=== PATIENT | female | born 1955 | race Caucasian/White ===

== ENCOUNTER 2020-01-20 10:43 | Outpatient (CLI) | payer OTHER, SELFPAY ==
--- NOTE | 2020-01-20 11:00 | NEURO_ITS ---
Patient Number: [id number] Impression: # Complains of left hand numbness # Mild left Carpal Tunnel Syndrome. # No ulnar neuropathy. # Normal needle/EMG exam. Nerve Conduction Studies Anti Sensory Summary Table Stim Site NR Peak (ms) P-T Amp (?V) Site1 Site2 Delta-P (ms) Dist (cm) Elías (m/s) Left Median Anti Sensory (2-3nd Digit) Wrist 2.7 61.9 Wrist 2-3nd Digit 2.7 14.0 52 Wrist 2.7 52.5 Wrist 2-3nd Digit 2.7 14.0 52 Right Median Anti Sensory (2-3nd Digit) Wrist 2.6 17.5 Wrist 2-3nd Digit 2.6 14.0 54 Wrist 2.8 13.8 Wrist 2-3nd Digit 2.6 14.0 54 Left Radial Anti Sensory (Base 1st Digit) Wrist 2.0 22.8 Wrist Base 1st Digit 2.0 0.0 Right Radial Anti Sensory (Base 1st Digit) Wrist 2.1 13.3 Wrist Base 1st Digit 2.1 0.0 Left Ulnar Anti Sensory (5th Digit) Wrist 2.4 41.0 Wrist 5th Digit 2.4 14.0 58 Right Ulnar Anti Sensory (5th Digit) Wrist 2.5 34.0 Wrist 5th Digit 2.5 14.0 56 Motor Summary Table Stim Site NR Onset (ms) O-P Amp (mV) Site1 Site2 Delta-0 (ms) Dist (cm) Elías (m/s) Left Median Motor (Abd Poll Brev) Wrist 3.5 2.9 Elbow Wrist 4.2 25.0 60 Elbow 7.7 2.5 Right Median Motor (Abd Poll Brev) Wrist 2.8 3.7 Elbow Wrist 5.1 28.0 55 Elbow 7.9 1.7 Left Ulnar Motor (Abd Dig Minimi) Wrist 2.3 6.0 A Elbow Wrist 4.5 26.0 58 A Elbow 6.8 4.7 Right Ulnar Motor (Abd Dig Minimi) Wrist 2.7 5.0 A Elbow Wrist 5.0 29.0 58 A Elbow 7.7 3.2 F Wave Studies NR F-Lat (ms) L-R F-Lat (ms) Left Median (Mrkrs) (Abd Poll Brev) 25.42 0.16 Right Median (Mrkrs) (Abd Poll Brev) 25.59 0.16 Left Ulnar (Mrkrs) (Abd Dig Min) 26.17 0.33 Right Ulnar (Mrkrs) (Abd Dig Min) 25.85 0.33 EMG Side Muscle Nerve Root Ins Act Fibs Amp Dur Recrt Comment Right 1stDorInt Ulnar C8-T1 Nml Nml Nml Nml Nml Right Ext Indicis Radial (Post Int) C7-8 Nml Nml Nml Nml Nml Right Ext Digitorum Radial (Post Int) C7-8 Nml Nml Nml Nml Nml Right BrachioRad Radial C5-6 Nml Nml Nml Nml Nml Right PronatorTeres Median C6-7 Nml Nml Nml Nml Nml Right Abd Poll Brev Median C8-T1 Nml Nml Nml Nml Nml Left 1stDorInt Ulnar C8-T1 Nml Nml Nml Nml Nml Left Ext Indicis Radial (Post Int) C7-8 Nml Nml Nml Nml Nml Left Ext Digitorum Radial (Post Int) C7-8 Nml Nml Nml Nml Nml Left BrachioRad Radial C5-6 Nml Nml Nml Nml Nml Left PronatorTeres Median C6-7 Nml Nml Nml Nml Nml Left Abd Poll Brev Median C8-T1 Nml Nml Nml Nml Nml MTDD
== END 2020-01-20 10:44 | disposition home or self-care (01) ==
PROVIDERS: PCP Family Medicine; Visit Provider Family Medicine
DX: R20.0 Anesthesia of skin (principal); G56.02 Carpal tunnel syndrome, left upper limb
CPT/HCPCS: 95886; 95911

== ENCOUNTER 2020-05-05 13:00 | Outpatient (RCR) | payer OTHER, SELFPAY ==
[2020-03-08 10:53] VITALS: BMI 30.9
== END 2020-06-06 23:59 | disposition home or self-care (01) ==
LOC: ANHDMC 13:00
PROVIDERS: PCP Family Medicine; Visit Provider Family Medicine
DX: E11.9 Type 2 diabetes mellitus without complications (principal); Z71.3 Dietary counseling and surveillance; Z71.89 Other specified counseling
CPT/HCPCS: 97802; G0108

== ENCOUNTER → 2020-06-03 09:51 | Outpatient (CLI) | payer OTHER, SELFPAY ==
--- NOTE | ~2020-06-03 | DEXA_ITS ---
Bone Density Report Name: Rosalinda Oviedo Age: 64 Sex: Female Ethnicity: White Date of : 1955 Indication: postmenopausal; screening for osteoporosis; Referring Provider: ANGEL, [place] Study: Bone densitometry was performed. Exam Date: June 03, 2020 Accession number: [id number] Bone Density: Region BMD T-score Z-score Classification AP Spine (L1-L4) 0.929 -1.1 0.6 Osteopenia Femoral Neck (Left) 0.722 -1.1 0.3 Osteopenia Total Hip (Left) 0.849 -0.8 0.4 Normal Femoral Neck (Right) 0.646 -1.8 -0.4 Osteopenia Total Hip (Right) 0.798 -1.2 0.0 Osteopenia Total Hip Mean 0.824 -1.0 0.2 Normal World Health Organization criteria for BMD impression classify patients as: Normal (T-score at or above -1.0), Osteopenia (T-score between -1.0 and -2.5), or Osteoporosis (T-score at or below -2.5). 10-year Fracture Risk(1): Major Osteoporotic Fracture 9.4% Hip Fracture 1.1% Reported Risk Factors: [place] (), Neck BMD=0.646, BMI=30.9 (1) FRAX(R) Version 3.08. Fracture probability calculated for an untreated patient. Fracture probability may be lower if the patient has received treatment. Previous Exams: Region Exam Age BMD T-score BMD Change BMD Change Date g/cm2 vs Baseline vs Previous AP Spine(L1-L4) 06/03/2020 64 0.929 -1.1 -0.036* -0.037* 04/15/2017 61 0.966 -0.7 0.001 -0.032* 04/09/2015 59 0.998 -0.4 0.033* -0.084* 03/08/2012 56 1.083 0.3 0.118* 0.073* 01/30/2008 52 1.010 -0.3 0.044* 0.044* 11/26/2005 50 0.965 -0.7 Total Hip(Left) 06/03/2020 64 0.849 -0.8 -0.049* -0.029* 04/15/2017 61 0.878 -0.5 -0.020 0.004 04/09/2015 59 0.874 -0.6 -0.024 -0.015 03/08/2012 56 0.889 -0.4 -0.009 -0.018 01/30/2008 52 0.907 -0.3 0.009 0.009 11/26/2005 50 0.898 -0.4 Total Hip(Right) 06/03/2020 64 0.798 -1.2 -0.109* -0.091* 04/15/2017 61 0.889 -0.4 -0.018 -0.063* 04/09/2015 59 0.952 0.1 0.045* 0.016 03/08/2012 56 0.936 -0.1 0.029* 0.035* 01/30/2008 52 0.901 -0.3 -0.006 -0.006 11/26/2005 50 0.907 -0.3 *Denotes significance at 95% confidence level, LSC for AP Spine = 0.022 g/cm2, LSC for Total Hip = 0.027 g/cm2 Clinical Information Provided by Patient:
--- NOTE | ~2020-06-03 | MM_ITS ---
EXAMINATION: MM screening dimitry BI w braeden HISTORY: Screening TECHNIQUE: Craniocaudal and mediolateral oblique 3-D tomosynthesis images were obtained and synthetic 2-D images were generated. CAD analysis was submitted and interpreted. COMPARISON: Comparison to multiple prior studies sequentially, with oldest reviewed study dated 02/28. BREAST PARENCHYMAL COMPOSITION: There are scattered areas of fibroglandular density. FINDINGS: There is architectural distortion in the upper central aspect of the left breast, likely fr om a prior lumpectomy. There is no evidence of suspicious mass, calcification, or architectural disto rtion to suggest malignancy in the right breast. There has been no suspicious interval change. IMPRESSION: 1. Architectural distortion upper central aspect of the left breast. 2. Comparison to previous more recent outside examinations recommended. BI-RADS Category 0: Incomplete: Needs additional imaging evaluation. Reviewed, dictated and finalized at location A.
== END ==
PROVIDERS: PCP Family Medicine; Visit Provider Nurse Practitioner
DX: Z12.31 Encounter for screening mammogram for malignant neoplasm of breast (principal); Z78.0 Asymptomatic menopausal state; M85.89 Other specified disorders of bone density and structure, multiple sites
CPT/HCPCS: 77063; 77067; 77080

== ENCOUNTER 2020-06-28 01:41 | Outpatient (CLI) | payer OTHER, SELFPAY ==
[2020-06-28 18:54] LABS: SARS-CoV-2 RNA PCR Negative
== END 2020-06-28 01:42 | disposition home or self-care (01) ==
LOC: ANHCOVIDDT 01:43
PROVIDERS: PCP Family Medicine; Visit Provider Internal Medicine Gastroenterology
DX: Z01.812 Encounter for preprocedural laboratory examination (principal); Z20.828 Contact with and (suspected) exposure to other viral communicable diseases
CPT/HCPCS: 87635; C9803; U0003

== ENCOUNTER 2020-06-30 00:54 | Day surgery (SDC) | payer OTHER, SELFPAY ==
[2020-06-22 13:25] VITALS: BMI 30.9
[2020-06-30 06:58] VITALS: BP 146/71; PULSE 81; RESP 16; TEMP 36.5; O2SAT 98
[2020-06-30] MEDS: LACTATED RINGERS 1,000 ML 150 ML IV CONT (07:11)
[2020-06-30 07:13] LABS: Glucose Point of Care 195 (65-105)
--- NOTE | 2020-06-30 07:19 | PM.IMHP ---
H&P: HPI History of Present Illness Date/Time: 06/30/20 07:19 Chief complaint: Neoplasm Screening Narrative: Reason for visit is colonoscopy. This very pleasant lady this being seen at the request of the primary physician. Impression: Screening and surveillance colonoscopy. The patient's history adenomatous colon polyps. GERD. Nonalcoholic fatty liver disease. For past medical history. Recommendation: Colonoscopy. History: This very pleasant lady's being evaluated for screening and surveillance colonoscopy. She has history adenomatous colon polyps. Her GI review systems unremarkable this time. Physical examination: General: very pleasant patient in no acute distress. HEENT: Head was normocephalic sclerae is clear mouth without masses neck was supple. Heart: Rate rhythm regular without S3 or S4. Lungs: CTA. Abdomen: Soft with no guarding or rigidity. Bowel sounds were active. Neurologic: Cranial nerves 2 through 12 intact. No focal defects. No clonus. Musculoskeletal system: Revealed no joint tenderness or swelling no muscle atrophy. Extremities: Reveal no significant edema. Skin: Warm and dry with normal turgor. Mental status: intact. Patient is alert and oriented. Review of Systems Review of Systems: All systems reviewed & are unremarkable except as noted in HPI and below PMFSH Past Medical History Medical History (Updated 06/30/20 @ 07:19 by Cristhian Restrepo DO) Adenomatous colon polyp Diabetes mellitus GERD (gastroesophageal reflux disease) Low bone mass Mixed hyperlipidemia NAFLD (nonalcoholic fatty liver disease) Primary osteoarthritis of both knees Vitamin D deficiency, unspecified Surgical History Surgical History (Updated 06/30/20 @ 07:19 by Cristhian Restrepo DO) History of cholecystectomy History of knee replacement L - 2010 R- 2017 Hx of colonoscopy Social History Social History Smoking status: Former smoker Tobacco type: cigarettes Alcohol intake: current Substance use: never Gender identity (if verbalized by the patient): Female Spiritual care concerns: No Meds Home Medications and Allergies Home Medications Medication Instructions Recorded Confirmed Type metformin 1,000 mg tablet 1,000 mg PO BID #180 tablet 02/25/20 06/22/20 Rx dapagliflozin 5 mg tablet 5 mg PO DAILY #30 tablet 06/16/20 06/22/20 Rx blood sugar diagnostic #100 each 06/20/20 Rx blood-glucose meter #1 each 06/20/20 Rx lancets #100 each 06/20/20 Rx Allergies Allergy/AdvReac Type Severity Reaction Status Date / Time amoxicillin Allergy Unknown Rash Verified 06/30/20 06:57 Vital Signs Vital Signs - 24 hr 06/30/20 06:58 Temperature 36.5 C Pulse Rate 81 Respiratory Rate 16 Blood Pressure 146/71 H Pulse Oximetry 98
--- NOTE | 2020-06-30 07:36 | WPDANESEPPF ---
Anes - Initial Pre Proc Eval Procedure: Operation Date: 06/30/20 08:00 Proposed Procedures p Screening Colonoscopy - Cristhian Restrepo DO Date/Time: 06/30/20 07:36 Surgeon: Cristhian Restrepo DO Pre Op Diagnosis: Neoplasm Screening Patient Data Age: 64 Gender: F Height: 5 ft Weight: 69.8 kg Last Vital Signs Temp 97.7 F 06/30/20 06:58 Pulse 81 06/30/20 06:58 Resp 16 06/30/20 06:58 BP 146/71 H 06/30/20 06:58 Pulse Ox 98 06/30/20 06:58 Allergies Allergy/AdvReac Type Severity Reaction Status Date / Time amoxicillin Allergy Unknown Rash Verified 06/30/20 06:57 Home Medications Medication Instructions Recorded Confirmed Type metformin 1,000 mg tablet 1,000 mg PO BID #180 tablet 02/25/20 06/22/20 Rx dapagliflozin 5 mg tablet 5 mg PO DAILY #30 tablet 06/16/20 06/22/20 Rx blood sugar diagnostic #100 each 06/20/20 Rx blood-glucose meter #1 each 06/20/20 Rx lancets #100 each 06/20/20 Rx Laboratory Tests 06/30/20 07:08 POC Capillary Glucose 195 mg/dl H mg/dl (65-105) Patient hx anesthesia problems: none Family hx anesthesia problems: none PMFSH Past Medical History Medical History (Updated 06/30/20 @ 07:19 by Cristhian Restrepo DO) Adenomatous colon polyp Diabetes mellitus GERD (gastroesophageal reflux disease) Low bone mass Mixed hyperlipidemia NAFLD (nonalcoholic fatty liver disease) Primary osteoarthritis of both knees Vitamin D deficiency, unspecified Surgical History Surgical History (Updated 06/30/20 @ 07:19 by Cristhian Restrepo DO) History of cholecystectomy History of knee replacement L - 2010 R- 2017 Hx of colonoscopy Social History Social History Smoking status: Former smoker Tobacco type: cigarettes Alcohol intake: current Substance use: never Gender identity (if verbalized by the patient): Female Spiritual care concerns: No Anes - Eval Final PreProcedure Day of Procedure 06/30/20 07:36 Patient weight: overweight Heart: regular rate and rhythm Lungs: clear to auscultation Airway: Mallampati scale class III Neurological: alert and oriented Last oral intake: >/= 8 hours ASA classification: III Emergent: no Anesthetic plan: proceed Anesthesia type and monitoring: general GIVS and standard monitoring Informed Consent: The patient's anesthetic plan and its attendant risks and benefits were discussed with the patient/family/POA. Questions were solicited and answers provided to the satisfaction of the patient/family/POA.
[2020-06-30 08:31] VITALS: BP 109/76; PULSE 68; RESP 16; O2SAT 99
[2020-06-30 08:41] VITALS: BP 85/67; PULSE 61; RESP 16; O2SAT 99
[2020-06-30 08:51] VITALS: BP 106/73; PULSE 61; RESP 16; O2SAT 100
== END 2020-06-30 09:01 | disposition home or self-care (01) ==
PROVIDERS: PCP Family Medicine; Visit Provider Internal Medicine Gastroenterology
PROC: 0DJD8ZZ Inspection of Lower Intestinal Tract, Via Natural or Artificial Opening Endoscopic (ICD-10-PCS; CPT 45378; principal; 2020-06-30 08:00)
DX: Z12.11 Encounter for screening for malignant neoplasm of colon (principal); E11.9 Type 2 diabetes mellitus without complications; E78.2 Mixed hyperlipidemia; K21.9 Gastro-esophageal reflux disease without esophagitis; K76.0 Fatty (change of) liver, not elsewhere classified; E55.9 Vitamin D deficiency, unspecified; Z79.84 Long term (current) use of oral hypoglycemic drugs; Z87.891 Personal history of nicotine dependence
CPT/HCPCS: 45378; J2704; J7120

== ENCOUNTER 2020-07-20 12:49 | Outpatient (RCR) | payer OTHER, SELFPAY | END 2020-10-03 11:37 | disposition home or self-care (01) | LOC: ANHDMC 12:49 | PROVIDERS: PCP Family Medicine; Visit Provider Family Medicine | DX: E11.9 Type 2 diabetes mellitus without complications (principal); Z71.89 Other specified counseling | CPT/HCPCS: G0108 ==

== ENCOUNTER → 2022-01-05 10:07 | Outpatient (CLI) | payer MEDICARE, OTHER, SELFPAY ==
--- NOTE | ~2022-01-05 | MM_ITS ---
EXAMINATION: MM screening dimitry BI w braeden HISTORY: Screening mammogram TECHNIQUE: Craniocaudal and mediolateral oblique 3-D tomosynthesis images were obtained and synthetic 2-D images were generated. CAD analysis was submitted and interpreted. COMPARISON: 05/30/2020, 06/29/2019, 06/04/2018 bilateral screening mammogram examinations BREAST PARENCHYMAL COMPOSITION: There are scattered areas of fibroglandular density. FINDINGS: There is bilateral chronic asymmetry; history of bilateral breast biopsies and left partial mastectomy for DCIS. There are benign calcifications, more numerous on the left. There is no evidence of suspicious mass, calcification, or interval architectural distortion to sugge st malignancy in either breast. There has been no suspicious interval change. IMPRESSION: 1. Benign findings including post left partial mastectomy changes. No mammographic evidence of malign [place]. 2. Recommend routine screening mammography in one year. BI-RADS Category 2: Benign finding(s). Reviewed, dictated and finalized at location A. NG PRESS OPERATOR IMPRESSION: 1. Benign findings including post left partial mastectomy changes. No mammograp hic evidence of malignancy. 2. Recommend routine screening mammography in one year. BI-RADS Category 2: Benign finding(s).
== END ==
PROVIDERS: PCP Family Medicine; Visit Provider Nurse Practitioner
DX: Z12.31 Encounter for screening mammogram for malignant neoplasm of breast (principal)
CPT/HCPCS: 77063; 77067

== ENCOUNTER → 2022-07-12 12:17 | Outpatient (CLI) | payer MEDICARE, OTHER, SELFPAY ==
--- NOTE | ~2022-07-12 | DEXA_ITS ---
Bone Density Report Name: ALY BLANCHARD Age: 66 Sex: Female Ethnicity: White Date of : 1955 Indication: osteopenia; postmenopausal Referring Provider: ANGEL, [place] Study: Bone densitometry was performed. Exam Date: July 12, 2022 Accession number: [id number] Bone Density: Region BMD T-score Z-score Classification AP Spine (L1-L4) 0.975 -0.7 1.2 Normal Femoral Neck (Left) 0.664 -1.7 -0.1 Osteopenia Total Hip (Left) 0.807 -1.1 0.2 Osteopenia Femoral Neck (Right) 0.676 -1.6 0.0 Osteopenia Total Hip (Right) 0.834 -0.9 0.4 Normal Total Hip Mean 0.821 -1.0 0.3 Normal World Health Organization criteria for BMD impression classify patients as: Normal (T-score at or above -1.0), Osteopenia (T-score between -1.0 and -2.5), or Osteoporosis (T-score at or below -2.5). 10-year Fracture Risk(1): Major Osteoporotic Fracture 9.2% Hip Fracture 1.1% Reported Risk Factors: [place] (), Neck BMD=0.664, BMI=29.9 (1) FRAX(R) Version 3.08. Fracture probability calculated for an untreated patient. Fracture probability may be lower if the patient has received treatment. Previous Exams: Region Exam Age BMD T-score BMD Change BMD Change Date g/cm2 vs Baseline vs Previous AP Spine(L1-L4) 07/12/2022 66 0.975 -0.7 0.009 0.046* 06/03/2020 64 0.929 -1.1 -0.036* -0.037* 04/15/2017 61 0.966 -0.7 0.001 -0.032* 04/09/2015 59 0.998 -0.4 0.033* -0.084* 03/08/2012 56 1.083 0.3 0.118* 0.073* 01/30/2008 52 1.010 -0.3 0.044* 0.044* 11/26/2005 50 0.965 -0.7 Total Hip(Left) 07/12/2022 66 0.807 -1.1 -0.091* -0.042* 06/03/2020 64 0.849 -0.8 -0.049* -0.029* 04/15/2017 61 0.878 -0.5 -0.020 0.004 04/09/2015 59 0.874 -0.6 -0.024 -0.015 03/08/2012 56 0.889 -0.4 -0.009 -0.018 01/30/2008 52 0.907 -0.3 0.009 0.009 11/26/2005 50 0.898 -0.4 Total Hip(Right) 07/12/2022 66 0.834 -0.9 -0.073* 0.036* 06/03/2020 64 0.798 -1.2 -0.109* -0.091* 04/15/2017 61 0.889 -0.4 -0.018 -0.063* 04/09/2015 59 0.952 0.1 0.045* 0.016 03/08/2012 56 0.936 -0.1 0.029* 0.035* 01/30/2008 52 0.901 -0.3 -0.006 -0.006 11/26/2005 50 0.907 -0.3 *Denotes significance at 95% confidence level
== END ==
PROVIDERS: PCP Family Medicine; Visit Provider Nurse Practitioner
DX: M85.851 Other specified disorders of bone density and structure, right thigh (principal); M85.852 Other specified disorders of bone density and structure, left thigh
CPT/HCPCS: 77080

== ENCOUNTER → 2023-02-18 15:54 | Outpatient (CLI) | payer MEDICARE, OTHER, SELFPAY ==
--- NOTE | ~2023-02-18 | MM_ITS ---
EXAMINATION: MM screening dimitry BI w braeden HISTORY: Screening mammogram TECHNIQUE: Craniocaudal and mediolateral oblique 3-D tomosynthesis images were obtained and synthetic 2-D images were generated. CAD analysis was submitted and interpreted. COMPARISON: October 05, 2022, June 03, 2020, June 19, 2019 bilateral screening mammogram examinatio ns BREAST PARENCHYMAL COMPOSITION: The breasts are heterogeneously dense, which may obscure small masses . FINDINGS: Stable postoperative change/architectural distortion of the left breast since 06/29/2019. Sc attered benign left breast calcifications. There is no evidence of suspicious mass, calcification, or new architectural distortion to suggest malignancy in either breast. There has been no suspicious in terval change. IMPRESSION: 1. No mammographic evidence of malignancy. 2. Recommend routine screening mammography in one year. BI-RADS Category 2: Benign finding(s). Reviewed, dictated and finalized at location A.
== END ==
PROVIDERS: PCP Nurse Practitioner; Visit Provider Nurse Practitioner
DX: Z12.31 Encounter for screening mammogram for malignant neoplasm of breast (principal)
CPT/HCPCS: 77063; 77067

== ENCOUNTER 2024-06-17 11:11 | Outpatient (CLI) | payer MEDICARE, OTHER, SELFPAY ==
--- NOTE | ~2024-06-17 | MM_ITS ---
EXAMINATION: MM screening dimitry BI w braeden HISTORY: Screening TECHNIQUE: Craniocaudal and mediolateral oblique 3-D tomosynthesis images were obtained and synthetic 2-D images were generated. CAD analysis was submitted and interpreted. COMPARISON: Comparison to multiple prior studies sequentially, with oldest reviewed study dated 03/21. BREAST PARENCHYMAL COMPOSITION: Dense: The breasts are heterogeneously dense, which may obscure small masses FINDINGS: There are lumpectomy changes with architectural distortion in the left breast. There is no evidence of suspicious mass, calcification, or architectural distortion to suggest malignancy in eith er breast. There has been no suspicious interval change. IMPRESSION: 1. No mammographic evidence of malignancy. 2. Recommend routine screening mammography in one year. BI-RADS Category 2: Benign finding(s). Reviewed, dictated and finalized at location B.
== END 2024-06-17 11:12 ==
PROVIDERS: PCP Nurse Practitioner; Visit Provider Nurse Practitioner
DX: Z12.31 Encounter for screening mammogram for malignant neoplasm of breast (principal)
CPT/HCPCS: 77063; 77067

== ENCOUNTER 2025-07-07 14:37 | Outpatient (CLI) | payer MEDICARE, OTHER, SELFPAY ==
--- NOTE | ~2025-07-07 | XR_ITS ---
XR wrist LT 2V, XR hand LT 2V 07/07/2025 14:54 Indication: Left wrist and hand pain Procedure: 2 views left wrist and 2 views left hand Comparison: No prior studies for comparison. Findings: There is mild no significant soft tissue abnormality. No foreign body. 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 Osteopenia. No acute fracture, subluxation or dislocation. Impression: 1: Mild polyarticular osteoarthritis of the left hand and wrist. Reviewed, dictated and finalized at location O. Impression: 1: Mild polyarticular osteoarthritis of the left hand and wrist. Impression: 1: Mild polyarticular osteoarthritis of the left hand and wrist.
== END 2025-07-07 14:38 | disposition home or self-care (01) ==
LOC: MICIMG 14:40
PROVIDERS: PCP Family Medicine; Visit Provider Nurse Practitioner Adult Health
DX: R20.0 Anesthesia of skin (principal); M72.0 Palmar fascial fibromatosis [Dupuytren]; R20.2 Paresthesia of skin; M19.042 Primary osteoarthritis, left hand; M19.032 Primary osteoarthritis, left wrist
CPT/HCPCS: 73100; 73120

== ENCOUNTER 2025-08-03 10:20 | Outpatient (CLI) | payer MEDICARE, OTHER, SELFPAY ==
--- NOTE | ~2025-08-03 | DEXA_ITS ---
Bone Density Report Name: ALY BLANCHARD Age: 69 Sex: Female Ethnicity: White Date of : 1955 Indication: osteopenia; cancer; Referring Provider: ANGEL, [place] Study: Bone densitometry was performed. Exam Date: August 03, 2025 Accession number: [id number] Bone Density: Region BMD T-score Z-score Classification AP Spine(L1-L4) 0.926 -1.1 0.9 Osteopenia Femoral Neck (Left) 0.677 -1.5 0.2 Osteopenia Total Hip (Left) 0.721 -1.8 -0.4 Osteopenia Femoral Neck (Right) 0.689 -1.4 0.3 Osteopenia Total Hip (Right) 0.697 -2.0 -0.6 Osteopenia Total Hip Mean 0.709 -1.9 -0.5 Osteopenia World Health Organization criteria for BMD impression classify patients as: Normal (T-score at or above -1.0), Osteopenia (T-score between -1.0 and -2.5), or Osteoporosis (T-score at or below -2.5). 10-year Fracture Risk(1): Major Osteoporotic Fracture 9.6% Hip Fracture 1.3% Reported Risk Factors: [place] (), Neck BMD=0.677, BMI=29.4 (1) FRAX(R) Version 3.08. Fracture probability calculated for an untreated patient. Fracture probability may be lower if the patient has received treatment. Previous Exams: -- Region Exam Age BMD T-score BMD Change BMD Change Date g/cm2 vs Baseline vs Previous -- AP Spine (L1-L4) 08/03/2025 69 0.926 -1.1 -4.0%* -4.9%* 07/12/2022 66 0.975 -0.7 1.0% 4.9%* 06/03/2020 64 0.929 -1.1 -3.8%* -3.9%* 04/15/2017 61 0.966 -0.7 0.1% -3.2%* 04/09/2015 59 0.998 -0.4 3.5%* -7.8%* 03/08/2012 56 1.083 0.3 12.2%* 7.3%* 01/30/2008 52 1.010 -0.3 4.6%* 4.6%* 11/26/2005 50 0.965 -0.7 Total Hip(Left) 08/03/2025 69 0.721 -1.8 -19.7%* -10.7%* 07/12/2022 66 0.807 -1.1 -10.1%* -4.9%* 06/03/2020 64 0.849 -0.8 -5.5%* -3.3%* 04/15/2017 61 0.878 -0.5 -2.3% 0.4% 04/09/2015 59 0.874 -0.6 -2.7% -1.7% 03/08/2012 56 0.889 -0.4 -1.0% -2.0% 01/30/2008 52 0.907 -0.3 1.0% 1.0% 11/26/2005 50 0.898 -0.4 Total Hip(Right) 08/03/2025 69 0.697 -2.0 -23.2%* -16.5%* 07/12/2022 66 0.834 -0.9 -8.0%* 4.5%* 06/03/2020 64 0.798 -1.2 -12.0%* -10.2%* 04/15/2017 61 0.889 -0.4 -1.9% -6.6%* 04/09/2015 59 0.952 0.1 5.0%* 1.8% 03/08/2012 56 0.936 -0.1 3.2%* 3.9%* 01/30/2008 52 0.901 -0.3 -0.7% -0.7% 11/26/2005 50 0.907 -0.3 -- *Denotes significance at 95% confidence level, LSC for AP Spine = 0.022 g/cm2, LSC for Total Hip = 0.027 g/cm2 Clinical Information Provided by Patient: Has used the following medications: Vitamin D, Calcium Has the following medical conditions: Cancer Patient maximum height was 60 Menopause Age: 54 No regular weight bearing exercise Does not regularly consume dairy products Drinks caffeinated beverages Onset of menses at age 13 Number of children 2 Impression: The patient has low bone mass, based on the Right Total Hip T-score. The patient has an estimated ten-year risk of hip fracture of 1.3% and an estimated ten-year risk of major fracture of 9.6%, based on the WHO FRAX algorithm. The BMD for the AP Spine (L1-L4) decreased, changing by -4.9% since the last DXA exam. The BMD for the Total Hip(Left) decreased, changing by -10.7% since the last DXA exam. The BMD for the Total Hip(Right) decreased, changing by -16.5% since the last DXA exam. Discussion: BONE DENSITY IS LOW AT ONE OR MORE SKELETAL SITES. This patient's lowest T-score is low at one or more skeletal sites. It meets the World Health Organization's (WHO) criteria for ?low bone mass? (T-score between -1.0 and -2.5). The patient's 10-year risk of fracture as calculated by FRAX is less than the threshold where pharmacological therapy is recommended by the National Osteoporosis Foundation (NOF). However, all treatment decisions require clinical judgment and consideration of individual patient factors, including patient preferences, comorbidities, previous drug use, risk factors not captured in the FRAX model (e.g., frailty, falls, vitamin D deficiency, increased bone turnover, interval significant decline in bone density) and possible under or overestimation of fracture risk by FRAX. The patient should follow a healthful lifestyle (good nutrition with adequate calcium and vitamin D, and appropriate weight-bearing exercise). Follow-Up: Consider repeating this study in 2 years to reassess this patient's status, or sooner if there is some new clinical indication. Reported by: JANINA on 08/03/2025 10:46:00 AM. Reviewed, dictated and finalized at location A.
== END 2025-08-03 10:21 | disposition home or self-care (01) ==
LOC: MICIMG 10:21
PROVIDERS: PCP Family Medicine; Visit Provider Nurse Practitioner
DX: M85.89 Other specified disorders of bone density and structure, multiple sites (principal); Z78.0 Asymptomatic menopausal state
CPT/HCPCS: 77080

== ENCOUNTER 2025-08-04 09:59 | Outpatient (CLI) | payer MEDICARE, OTHER, SELFPAY ==
--- NOTE | 2025-08-04 10:40 | NEURO_ITS ---
Impression: Complains of numbness of hands. # History of left dupuytren's contracture. 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 # Normal Needle/ EMG exam. Nerve Conduction Studies ?Stim Site NR Peak (ms) P-T Amp (?V) Site1 Site2 Delta-P (ms) Dist (cm) Elías (m/s) Left Median Anti Sensory (2-3nd Digit) Wrist ? 2.8 22.0 Wrist 2-3nd Digit 2.8 14.0 50 Wrist ? 2.8 25.9 Wrist 2-3nd Digit 2.8 14.0 50 Right Median Anti Sensory (2-3nd Digit) Wrist ? 2.8 21.2 Wrist 2-3nd Digit 2.8 14.0 50 Wrist ? 2.9 28.8 Wrist 2-3nd Digit 2.8 14.0 50 Left Radial Anti Sensory (Base 1st Digit) Wrist ? 1.9 11.8 Wrist Base 1st Digit 1.9 0.0 Right Radial Anti Sensory (Base 1st Digit) Wrist ? 2.1 8.4 Wrist Base 1st Digit 2.1 0.0 Left Ulnar Anti Sensory (5th Digit) Wrist ? 2.4 25.3 Wrist 5th Digit 2.4 14.0 58 Right Ulnar Anti Sensory (5th Digit) Wrist ? 2.5 22.5 Wrist 5th Digit 2.5 14.0 56 ?Stim Site NR Onset (ms) O-P Amp (mV) Site1 Site2 Delta-0 (ms) Dist (cm) Elías (m/s) Left Median Motor (Abd Poll Brev) Wrist ? 3.3 4.1 Elbow Wrist 4.7 27.0 57 Elbow ? 8.0 3.6 Right Median Motor (Abd Poll Brev) Wrist ? 3.3 3.5 Elbow Wrist 4.7 27.0 57 Elbow ? 8.0 5.5 Left Ulnar Motor (Abd Dig Minimi) Wrist ? 2.5 7.3 A Elbow Wrist 5.2 28.0 54 A Elbow ? 7.7 5.9 B Elbow Wrist 3.4 20.0 59 B Elbow ? 5.9 4.1 Right Ulnar Motor (Abd Dig Minimi) Wrist ? 2.4 6.6 A Elbow Wrist 4.9 27.0 55 A Elbow ? 7.3 4.8 B Elbow Wrist 3.1 18.0 58 B Elbow ? 5.5 3.2 F Wave Studies ?NR F-Lat (ms) L-R F-Lat (ms) Left Median (Mrkrs) (Abd Poll Brev) ? 24.68 0.37 Right Median (Mrkrs) (Abd Poll Brev) ? 25.06 0.37 Left Ulnar (Mrkrs) (Abd Dig Min) ? 25.47 0.52 Right Ulnar (Mrkrs) (Abd Dig Min) ? 25.99 0.52 Electromyography ?Side Muscle Nerve Root Ins Act Fibs Amp Dur Recrt Comment Right 1stDorInt Ulnar C8-T1 Nml Nml Nml Nml Nml Right Ext Indicis Radial (Post Int) C7-8 Nml Nml Nml Nml Nml Right Ext Digitorum Radial (Post Int) C7-8 Nml Nml Nml Nml Nml Right BrachioRad Radial C5-6 Nml Nml Nml Nml Nml Right PronatorTeres Median C6-7 Nml Nml Nml Nml Nml Right Abd Poll Brev Median C8-T1 Nml Nml Nml Nml Nml Right ABD Dig Min Ulnar C8-T1 Nml Nml Nml Nml Nml Right FlexPolLong Median (Ant Int) C7-8 Nml Nml Nml Nml Nml Right Abd Poll Long Radial (Post Int) C7-8 Nml Nml Nml Nml Nml Left 1stDorInt Ulnar C8-T1 Nml Nml Nml Nml Nml Left Ext Indicis Radial (Post Int) C7-8 Nml Nml Nml Nml Nml Left Ext Digitorum Radial (Post Int) C7-8 Nml Nml Nml Nml Nml Left BrachioRad Radial C5-6 Nml Nml Nml Nml Nml Left PronatorTeres Median C6-7 Nml Nml Nml Nml Nml Left Abd Poll Brev Median C8-T1 Nml Nml Nml Nml Nml Left ABD Dig Min Ulnar C8-T1 Nml Nml Nml Nml Nml Left FlexPolLong Median (Ant Int) C7-8 Nml Nml Nml Nml Nml Left Abd Poll Long Radial (Post Int) C7-8 Nml Nml Nml Nml Nml
--- OUTSIDE RECORDS SUMMARY | 2025-08-04 10:54 | XMS_ITS | Clinical Summary ---
Author Organization [facility] Address [address] [address] Phone Care Team Providers Care Manufacturing Production Manager Name Role Phone Nghia Ulrich MD Primary Care Provider Social History Tobacco Use Types Packs/Day Years Used Date Smoking Tobacco: Never Assessed Comments Unknown Sex and Gender Information Value Date Recorded Sex Assigned at Not on file Legal Sex Female 9:24 PM CDT Gender Identity Not on file Sexual Orientation Not on file Plan of Treatment Health Maintenance Due Date Last Done Comments Hepatitis C Virus (HCV) Screening 1955 TdaP Immunization 1955 Cologuard 2001 Immunochemical Fecal Occult Blood 2001 Pneumococcal Immunization (5 0+ years) (1 of 1 - PCV) 2006 Zoster Immunization (1 of 2) 2006 Colonoscopy 06/30/2007 06/30/2000 Colorectal Cancer Screening 06/30/2007 SARS-COV-2 Immunization ( - season) 2024 Influenza Immunization (#1) 2025 Respiratory Syncytial Virus (RSV) Immunization (Adult) (1 - 1-dose 75+ series) 2031 Hepatitis B Immunization Aged Out No longer eligible based on patient's age to complete this topic Human Papillomavirus (HPV) Immunization Aged Out No longer eligible b ased on patient's age to complete this topic Meningococcal Immunization (ACWY) Aged Out No longer eligible based on patient's age to complete this topic Rotavirus Immunization Aged Out No lo nger eligible based on patient's age to complete this topic Procedures Procedure Name Priority Date/Time Associated Diagnosis Comments HM COLONOSCOPY Routine 06/30/2000 from Last 3 Months or Most Recently Relevant to Health Maintenance Results * COLONOSCOPY (06/30/2000) Cristhian Restrepo DO PROCEDURE/MINOR SURGICAL ORDERA BLES Final Result from Last 3 Months or Most Recently Relevant to Health Maintenance Insurance [employer] Care Teams Manufacturing Production Manager Relationship Specialty Start Date End Date Nghia Ulrich MD [address] [address] PCP - General Family Medicine 01/06/20
--- OUTSIDE RECORDS SUMMARY | 2025-08-04 10:54 | XMS_ITS | Clinical Summary ---
Author Organization [facility] Address [address] [place] [address] Care Team Providers Care Mold Builder Name Role Phone None, Provider MD Primary Care Provider Unavaila ble Allergies Active Allergy Reactions Criticality Noted Date Comments Amoxicillin Rash,Shortness of Breath,Unknown,Hives High 12/15/2019 Medications Semaglutide (OZEMPIC, 0.25 OR 0.5 MG/DOSE, SC) Active metFORMIN ER, OSM, (FORTAMET) 500 MG 24 hr tablet Take 1 tablet (500 mg total) by mouth daily with breakfast. Active empagliflozin (JARDIANCE) 10 MG tablet Take 1 tablet (10 mg total) by mouth daily. Active Ferrous Sulfate (IRON OR) Take by mouth Active Active Problems Problem Noted Date Diagnosed Date Abnormal levels of other serum enzymes Diabetes mellitus, type 2 ([facility]) 04/11 History of breast cancer 06/19/2019 Elevated liver enzymes 07/25/2017 Immunizations Immunization Administration Dates Next Due Arexvy Respiratory Syncytial Virus (RSV, adjuvanted) 0.5 mL, PF 07/16/2023 Fluzone High Dose - >Age 65 (Prefilled Syringe) 07/16/2023,08/15/2022 Influenza (Generic) 08/14/2019,08/26/2017,2012 Influenza Adult (Generic) 08/11/2020,09/2019,07/31/2018,2016,08/09/2016 Pneumococcal (Prevnar 13) 08/21/2019 Tdap (Generic) 08/21/2019 Zoster (Zostavax) 70448 Unt/0.65Ml 10/16/2016 Family History Medical History Relation Comments Hypertension Brother Heart Attack Father Diabetes Mother Lung Cancer Mother Diabetes Sister Hypertension Sister Relation Status Comments Brother Father Mother Sister Social History Tobacco Use Types Packs/Day Years Used Date Smoking Tobacco: Former Cigarettes Smokeless Tobacco: Never Tobacco Cessation:Counseling Given: No Alcohol Use Standard Drinks/Week Comments Not Currently 0 (1 standard drink = 0.6 oz pur e alcohol) PHQ-2 Answer Date Recorded Patient Health Questionnaire-2 Score 0 06/10/2024 Comments Unknown Sex and Gender Information Value Date Recorded Sex Assigned at Not on file 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 Gender Identity Not on file Sexual Orientation Not on file Last Filed Vital Signs Vital Sign Reading Time Taken Comments Blood Pressure 130/85 06/17/2024 1:41 PM CDT Pulse 94 06/17/2024 1:41 PM CDT Temperature 36.6 C (97.8 F) 06/17/2024 1:41 PM CDT Respiratory Rate 16 06/17/2024 1:41 PM CDT Oxygen Saturation 96% 06/17/2024 1:41 PM CDT Inhaled Oxygen Concentration - - Weight 68.9 kg (152 lb) 06/17/2024 1:41 PM CDT Height 152.4 cm (5') 06/17/2024 1:41 PM CDT Body Mass Index 29.69 06/17/2024 1:41 PM CDT Plan of Treatment Health Maintenance Due Date Last Done Comments Colorectal Cancer Screening Colonoscopy (10 Years) 1955 Kidney Health Evaluation 1955 Hemoglobin A1C 1956 Lipid Panel 1956 Diabetes: Retinopathy Eye Exam 1974 Hepatitis C 1974 Zoster Vaccines (2 of 3) 12/11/2016 10/16/2016 Pneumococcal Vaccine: 50+ Years (2 of 2 - PPSV23) 10/16/2019 08/21/2019 Mammogram Screening 06/19/2021 06/19/2019, 06/04/2018, 04/10/2017, Additional history exists Annual Medicare Wellness Visit 2021 Dexa Scan (General) 2021 PHQ-2 (Physician Wallace) 11/11/2024 06/10/2024 COVID-19 Vaccine ( - season) 2025 08/25/2021, 12/06/2020, 11/15/2020 DTaP, Tdap and Td Vaccines (2 - Td or Tdap) 08/21/2029 08/21/2019 RSV Immunization or 60+ Years Completed 07/16/2023 Meningococcal B Vaccine Aged Out No l onger eligible based on patient's age to complete this topic Meningococcal Vaccine Aged Out No fara mohini eligible based on patient's age to complete this topic RSV Immunizations Under 20 Months Aged Out No longer eligible based on patient's age to complete this topic Insurance MEDICARE [facility] Care Teams Mold Builder Relationship Specialty Start Date End Date None, Provider, PCP - General UNKNOWN PHYSICIAN SPECIALTY 06/10/24
--- OUTSIDE RECORDS SUMMARY | 2025-08-04 10:54 | XMS_ITS | Encounter Summary ---
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
--- OUTSIDE RECORDS SUMMARY | 2025-08-04 10:54 | XMS_ITS | Clinical Summary ---
Author Organization [facility] Address [address] [place] [address] Care Team Providers Care Curator Herbarium Name Role Phone Nghia Ulrich MD Primary Care Provider Allergies Active Allergy Reactions Criticality Noted Date Comments Amoxicillin Unknown 07/15/2020 Medications aspirin 81 mg tablet Take 1 tablet 3 times weekly Active calcium carbonate-vitami n D3 1,500 mg (600mg elemental) -800 unit per tablet daily. Acti ve metFORMIN XR (GLUCOPHAGE XR) 500 mg 24 hr tablet 12/13/2018 Active iron 18 mg tablet Take by mouth Active naproxen (ANAPROX,ALEVE) 220 mg tablet Take by mouth 2 (two) times a day with meals Active Active Problems Problem Noted Date Diagnosed Date History of breast cancer 06/19/2019 At risk of disease 08/01/2018 Assessment & Plan (08/01/2018 10:56 AM CDT): We discussed to the finding of increased risk for celiac disease which was evidently reported on her [facility] results. She prefers to monitor her symptoms for now, and determine based on that whether to pursue testing for celiac disease. Aftercare following right knee joint replacement surgery 02/13/2018 Status post breast reconstruction 01/23/2018 Encounter for consultation 10/14/2017 Assessment & Plan (08/01/2018 10:55 AM CDT): She will check with her primary care physician regarding whether she is due for surveillance colonoscopy. She has not had evidence of immunity to hepatitis A or B, and should be vaccinated for these if this is not already been done. This can be done through her primary care physician or local health department. Elevated liver enzymes 07/25/2017 Obesity with body mass index 30 or greater 07/25 Knee pain 07/18/2017 NAFLD (nonalcoholic fatty liver disease) 017 Assessment & Plan (08/01/2018 10:54 AM CDT): She has had waxing and waning mild elevations of her liver enzymes, which most recently were improved in January. She will have these rechecked through her oncologist in September. Her NAFLD fibrosis score is indeterminate, but her liver MRI last year showed no morphologic features of advanced fibrosis. We will continue to monitor for this periodically. We also discussed the finding of alpha-1 antitrypsin MS phenotype (not expected to cause liver disease) and the recommendation for testing of first-degree family members. 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, left - (Added by TW Conv) Encounter for therapeutic dr ug level monitoring Encounter for monitoring benjamin oxifen therapy - (Added by TW Conv) Family History Medical History Relation Name Comments Diabetes Father Family history of diabetes mellitus - (Added by TW Conv)/Family history of diabetes mellitus - (Added by TW Conv) Heart attack Father Family history of myocardial infarction - (Added by TW Conv)/Family history of myocardial infarction - (Added by TW Conv) Diabetes Mother Family history of diabetes mellitus - (Added by TW Conv)/Family history of diabetes mellitus - (Added by TW Conv) Lung cancer Mother Family history of lung cancer - (Added by TW Conv)/Family history of lung cancer - (Added by TW Conv) Relation Name Status Comments Father Mother Social History Tobacco Use Types Packs/Day Years Used Date Smoking Tobacco: Former Smokeless Tobacco: Never Alcohol Use Standard Drinks/Week Comments Yes 0 (1 standard drink = 0.6 oz pur e alcohol) Comments No Sex and Gender Information Value Date Recorded Sex Assigned at Not on file Legal Sex Female 7:29 AM POSTIE Gender Identity Not on file Sexual Orientation Not on file Obstetrics History Last Filed Vital Signs Vital Sign Reading Time Taken Comments Blood Pressure 143/105 09/23/2018 3:00 PM POSTIE Pulse 96 09/23/2018 3:00 PM POSTIE Temperature 37 C (98.6 F) 09/23/2018 3:00 PM POSTIE Respiratory Rate 16 09/23/2018 3:00 PM POSTIE Oxygen Saturation 96% 09/23/2018 3:00 PM POSTIE Inhaled Oxygen Concentration - - Weight 71.7 kg (158 lb) 07/15/2020 8:16 AM CDT Height 152.4 cm (5') 07/15/2020 8:16 AM CDT Body Mass Index 30.86 07/15/2020 8:16 AM CDT Plan of Treatment Not on file Insurance [employer] [place] [employer] Address: [facility] [address] [place], [place] [id number] [place] [address] CLAIMS CLAIMS [facility] [employer] [place] [employer] Address: [address] [address] [place] [address] [employer] MEDIC[employer] PPO [id number] [place] [id number] Care Teams Curator Herbarium Relationship Specialty Start Date End Date Nghia Ulrich MD PCP - General 01/17/17
== END 2025-08-04 10:00 | disposition home or self-care (01) ==
LOC: ANHNEURO 10:01
PROVIDERS: PCP Family Medicine; Visit Provider Nurse Practitioner Adult Health
DX: M72.0 Palmar fascial fibromatosis [Dupuytren] (principal); G56.20 Lesion of ulnar nerve, unspecified upper limb; R20.2 Paresthesia of skin; R20.0 Anesthesia of skin
CPT/HCPCS: 95886; 95911

== ENCOUNTER 2025-08-09 08:40 | Outpatient (CLI) | payer MEDICARE, OTHER, SELFPAY ==
--- NOTE | ~2025-08-09 | MM_ITS ---
EXAMINATION: MM screening [facility] BI w [place] HISTORY: Screening TECHNIQUE: Craniocaudal and mediolateral oblique 3-D tomosynthesis images were obtained and synthetic 2-D images were generated. CAD analysis was submitted and interpreted. COMPARISON: 02/18/2023 and 01/05/2022 BREAST PARENCHYMAL COMPOSITION: The breasts are heterogeneously dense, which may obscure small masses. FINDINGS: There is no evidence of suspicious mass, calcification, or architectural distortion to suggest malignancy. Asymmetry in the upper right breast, posterior depth, seen in the right MLO projection. IMPRESSION: 1. Asymmetry in the upper right breast, posterior depth, seen in the right MLO projection. The study is incomplete. A diagnostic mammogram and a diagnostic ultrasound are recommended. 2. Benign finding the left breast. BI-RADS 0: Incomplete-Need additional imaging evaluation. Reviewed, dictated and finalized at location Q. IMPRESSION: 1. Asymmetry in the upper right breast, posterior depth, seen in the right MLO projection. The study is incomplete. A diagnostic mammogram and a diagnostic ul trasound are recommended. 2. Benign finding the left breast. BI-RADS 0: Incomplete-Need additional imaging evaluation.
== END 2025-08-09 08:41 | disposition home or self-care (01) ==
LOC: MICIMG 08:40
PROVIDERS: PCP Family Medicine; Visit Provider Nurse Practitioner
DX: Z12.31 Encounter for screening mammogram for malignant neoplasm of breast (principal); R92.8 Other abnormal and inconclusive findings on diagnostic imaging of breast
CPT/HCPCS: 77063; 77067

== ENCOUNTER 2025-09-21 07:50 | Outpatient (CLI) | payer MEDICARE, OTHER, SELFPAY ==
--- NOTE | ~2025-09-21 | MMUS_ITS ---
EXAMINATION: MM diagnostic dimitry RT w braeden, US breast RT complete HISTORY: Follow-up right breast asymmetry TECHNIQUE: Additional 3-D tomosynthesis images of the right breast were performed and synthetic 2-D images were generated. CAD analysis was submitted and interpreted. High resolution complete right breast ultrasound was performed. COMPARISON: Comparison to multiple prior studies sequentially, with oldest reviewed study dated 06/19/2019. BREAST PARENCHYMAL COMPOSITION: Dense: The breasts are heterogeneously dense, which may obscure small masses FINDINGS: MAMMOGRAPHIC FINDINGS: Focal asymmetry seen on prior mammogram compresses with spot views, most likely superimposed fibroglandular tissue. No new masses, calcifications or architectural distortion are seen. ULTRASOUND: Complete US of all 4 quadrants of the right breast/s and retroareolar region was reviewed. At 8:00, 3.5 cm from the nipple there is an 8 mm cyst. Mildly prominent ducts are noted adjacent to the cyst. No suspicious solid masses to suggest malignancy. IMPRESSION: 1. No evidence for malignancy in the right breast. 2. Routine yearly screening mammogram and regular clinical breast examination are recommended. BI-RADS Category 2: Benign finding(s). Reviewed, dictated and finalized at location C. ER CLERK IMPRESSION: 1. No evidence for malignancy in the right breast. 2. Routine yearly screening mammogram and regular clinical breast examination a re recommended. BI-RADS Category 2: Benign finding(s).
== END 2025-09-21 07:51 | disposition home or self-care (01) ==
LOC: MICIMG 07:51
PROVIDERS: PCP Family Medicine; Visit Provider Obstetrics & Gynecology Gynecology
DX: R92.8 Other abnormal and inconclusive findings on diagnostic imaging of breast (principal)
CPT/HCPCS: 76641; 77061; 77065; G0279